=== PATIENT | male | born 1950 | race Caucasian/White ===

== ENCOUNTER → 2021-08-11 13:35 | Outpatient (BNVA) | payer MEDICARE, SELFPAY | PROVIDERS: Visit Provider Registered Nurse Neonatal Intensive Care | DX: R21 Rash and other nonspecific skin eruption (principal) | CPT/HCPCS: 80053; 85025; 86140; 86160; 86162; 86235; 86255; 86376 ==

== ENCOUNTER 2021-08-18 11:22 | Outpatient (CLI) | payer MEDICARE, SELFPAY ==
--- NOTE | 2021-08-18 11:32 | XR_ITS ---
WS: [id number] CHEST 2 VIEWS HISTORY: smoker with weight loss COMPARISON: None available. Lungs: Mild hyperexpansion with flattened diaphragms. No soft tissue mass. Benign granuloma in the ce ntral LEFT lung. Cardiac size: Normal. Mediastinum/Aorta: Normal mediastinum. Bones: There are mild thoracic degenerative disc disease. XR/XR chest 2V* [id number] IMPRESSION: Mild chronic emphysema. No pulmonary mass or nodule.
== END 2021-08-18 11:23 | disposition home or self-care (01) ==
PROVIDERS: Visit Provider Family Medicine Adult Medicine
DX: F17.200 Nicotine dependence, unspecified, uncomplicated (principal); R63.4 Abnormal weight loss; J43.9 Emphysema, unspecified
CPT/HCPCS: 71046

== ENCOUNTER → 2021-10-06 09:48 | Outpatient (BNVA) | payer MEDICARE, SELFPAY | PROVIDERS: Visit Provider Surgery | DX: Z20.822 Contact with and (suspected) exposure to COVID-19 (principal) | CPT/HCPCS: 87635 ==

== ENCOUNTER 2021-10-12 08:12 | Day surgery (SDC) | payer MEDICARE, SELFPAY ==
[2021-10-10 13:47] VITALS: BMI 23.3
--- NOTE | 2021-10-12 08:30 | ANES.PREANE2 ---
Pre-Anesthetic Assessment Pre-Anesthetic Assessment: Height/Weight: Height 1.83 m Weight 78.018 kg Proposed Procedure: Operation Date: 10/12/21 09:45 Proposed Procedures p Colonoscopy 57165 Z86.010(Not Applicable) - Lane Pina MD Was Beta Gertrude taken within 24 hours: N/A Was Clonidine taken within 24 hours: N/A Social: Social History: Tobacco and No alcohol Exam: Pre-Anes Outpt Exam: alert, oriented x 3 and regular rate & rhythm Airway: Submandibular: WNL Cervical ROM: WNL MP: 2 Dentition: False Pulmonary: Pulmonary: COPD Musc/skel: Musc/skel: Lower Back Pain Anesthetic Plan: ASA status: 3 Anesthesia: MAC Risk of > 500 ml blood loss (7ml/kg in children): No PFSH Anesthesia PFSH: Medical History (Updated 09/15/21 @ 09:20 by Hiram Arana MD) Autoimmune skin disease Cellulitis of thumb, left Hx of colonic polyps Last Colonoscopy 2004 with multiple polyps, smoker x 60 years Osteoarthritis involving multiple joints on both sides of body Smoker 60 years 1 ppd Smoker unmotivated to quit Weight loss, abnormal Surgical History (Updated 09/15/21 @ 09:20 by Hiram Arana MD) History of back surgery 1974, 1977 Data Anesthesia Cardiac Studies: No Data to Display
[2021-10-12 09:22] VITALS: BP 120/72; PULSE 90; RESP 16; TEMP 36.5; O2SAT 98
[2021-10-12] MEDS: sodium chloride 0.9% 1,000 ML 30 ML IV (09:26)
--- NOTE | 2021-10-12 10:00 | W.PM.OPSFHP ---
Same Day Surgery H&P Indication for Procedure/HPI DATE OF PROCEDURE: October 12, 2021 CHIEF COMPLAINT/INDICATIONFOR SURGICAL PROCEDURE: History of colon polyp PREOP DIAGNOSIS: History of colon polyps PLANNED PROCEDRUE: Operation Date: 10/12/21 09:45 Proposed Procedures p Colonoscopy 26604 Z86.010(Not Applicable) - Lane Pina MD 09/01/2021 This is a pleasant 71 years old gentleman referred to my practice with history of colon polyps and last colonoscopy was done back in 2004. Patient denies bleeding per rectum and reports that he had his grandpa had history of colon cancer as well as his sister of age of 59. Also reports that he does have a brother had his part of the colon resected but is not sure if it is cancer or not. Patient is referred to me to discuss potential colonoscopy for surveillance purposes. 10/12/2021 Patient comes today for surveillance colonoscopy ROS All systems have been reviewed negative except as per the above or per problem list Medications/Allergies* Allergies/Adverse Reactions Allergy/AdvReac Type Severity Reaction Status Date / Time No Known Allergies Allergy Verified 10/12/21 10:01 Current Medications: Generic Name Dose Route Start Last Admin Trade Name Freq PRN Reason Stop Dose Admin Sodium Chloride 1,000 mls @ 30 mls/hr 10/12/21 08:45 10/12/21 09:26 Sodium Chloride 0.9% IV 10/13/21 08:44 30 mls/hr .Q24H GINGER Administration Pertinent History/Comorbid Conditions* Medical History (Updated 09/15/21 @ 09:20 by Hiram Arana MD) Autoimmune skin disease Cellulitis of thumb, left Hx of colonic polyps Last Colonoscopy 2004 with multiple polyps, smoker x 60 years Osteoarthritis involving multiple joints on both sides of body Smoker 60 years 1 ppd Smoker unmotivated to quit Weight loss, abnormal Surgical History (Updated 09/15/21 @ 09:20 by Hiram Arana MD) History of back surgery 1974, 1977 Pertinent Exam Findings alert, oriented x 3 and procedure specific exam findings (Abdominal examination nontender nondistended soft) Recommendations Surgery/Procedure today (Surveillance Colonoscopy) Coding Level of Care Code Acute 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
[2021-10-12 10:45] VITALS: BP 90/56; PULSE 77; RESP 18; TEMP 36.1; O2SAT 99
--- NOTE | 2021-10-12 10:47 | ANE.PACU2 ---
Inpatient post-anesthesia follow up: Airway intact: Yes Vital signs: Temperature 97.0 F Pulse Rate 77 Respiratory Rate 18 Blood Pressure 90/56 Pulse Oximetry 99 Oxygen Delivery Me thod Nasal Cannula Oxygen Flow Rate 4 Fraction of Inspir ed Oxygen Hydration adequate: Yes Nausea and vomiting: No Pain level: 1 Mental status: Baseline
[2021-10-12 11:02] VITALS: BP 115/68; PULSE 77; RESP 17; O2SAT 97
--- NOTE | 2021-10-12 11:06 | FL_ITS ---
WS: [id number] Exam: FL barium enema [id number] Date/Time of Exam: 10/12/2021 11:06 AM Reason For Exam: colonoscopy finding Full column barium enema was performed. Severe diverticulosis and spasm of the sigmoid colon with near obstruction is identified. Barium coul d only be advanced into the descending colon. The remaining colon could not be opacified for evaluati on. No obvious mass was identified however distention of the left colon was suboptimal. Recommendations: A repeat study with IV glucagon might be considered when the patient's condition daphney l allow. FL/FL barium enema [id number] IMPRESSION: 1. Nondiagnostic barium enema due to severe diverticulosis and spasm of the sig moid colon with near obstruction. Some barium flowed into the left colon but de tail is suboptimal for detection of a mass or constricting lesion.
== END 2021-10-12 11:06 | disposition home or self-care (01) ==
PROVIDERS: PCP Family Medicine Adult Medicine; Visit Provider Surgery
PROC: 0DJD8ZZ Inspection of Lower Intestinal Tract, Via Natural or Artificial Opening Endoscopic (ICD-10-PCS; CPT 45378; principal; 2021-10-12 09:45)
DX: Z12.11 Encounter for screening for malignant neoplasm of colon (principal); K57.30 Diverticulosis of large intestine without perforation or abscess without bleeding; F17.200 Nicotine dependence, unspecified, uncomplicated; Z86.010 Personal history of colon polyps
CPT/HCPCS: 45330; 74270; 96360; 96361; J2704; J7030

== ENCOUNTER 2021-11-28 11:37 | Outpatient (CLI) | payer MEDICARE, SELFPAY ==
--- NOTE | 2021-11-28 11:45 | CT_ITS ---
WS: [id number] CT ABDOMEN AND PELVIS WITH CONTRAST HISTORY: Unable to gain weight. History of diverticulitis. TECHNIQUE: Imaging performed of the abdomen and pelvis with IV contrast. Single phase imaging of the abdomen. Coronal and sagittal reformats are submitted. All CT scans at [facility] use at [address] one of these dose optimization techniques: automated exposure control; mA and/or kV adjustment per patient size (includes targeted exams where dose is matched to clinical indication); or iterative re construction. IV CONTRAST: Omnipaque 300; 95 mL IV. Oral contrast: No DLP: 1345.44 mGy.cm COMPARISON: None available. Lower thorax: Moderate chronic emphysema. Lungs are hyperinflated. Heart is top normal size on the sc out image. No hiatal hernia. Liver/biliary system: Normal size liver. Hypoechoic nodule is too small to characterize towards the s uperior LEFT lobe of the liver. There are additional smaller scattered areas of decreased attenuation . No solid mass. Normal portal vein. Gallbladder: Normal. No gallstones or wall thickening. No pericholecystic fluid. Pancreas: Normal size pancreas and pancreatic duct. No adjacent inflammation. Spleen: Normal size spleen with granulomata. Adrenal glands: Normal. Right kidney: Normal size kidney. Cortical cysts are noted. The largest in the upper pole measures 2. 2 cm in diameter. No obstruction. Left kidney: Normal size kidney. There are several small cortical cysts. The largest in the upper ana m e measures 1.0 cm. No obstruction or solid mass. Aorta: Moderate atherosclerosis throughout the abdominal aorta. There is aneurysmal dilatation beginn ing below the level of the renal arteries extending over a length of 7.3 cm. Aneurysm begins several centimeters below the renal arteries and extends to the bifurcation. Maximum diameter of the aneurysm is 4.8 cm x 4.7 cm. Asymmetric luminal thrombus greatest to the LEFT measures 1.0 cm at its maximum. The lumen is patent to the bifurcation. Very mild ectasia and atherosclerotic changes within the edwige ac arteries. Opacification and contrast enhancement within the celiac axis and SMA. Opacification is limited by the contrast injection. Lymphadenopathy: None. Free fluid: None. GI tract: Stomach is nondistended with contrast. No obstructive pattern. There is moderate fecal rete ntion throughout the colon. The appendix is normal. Numerous diverticula beginning in the sigmoid col on. There is wall thickening and heterogeneity within the mucosa. Very dense inspissated contrast ret ained within several of the sigmoid diverticula. No definite free air is identified. No acute diverti culitis appreciated. No abscess. Abdominal wall: Fat-containing umbilical hernia. Pelvis: No free fluid or adenopathy. Normally distended urinary bladder. Prostate gland is heterogene ous. Bones: Degenerative LEFT curvature lumbar spine. Mild narrowing of the hip joints. CT/CT abdomen pelvis w con* [id number] IMPRESSION: 1. Extensive extensive sigmoid diverticulosis. No definite evidence for acute diverticulitis at this time. 2. Moderate size infrarenal abdominal aortic aneurysm with a maximum diameter 4.8 cm. 3. Emphysema. 4. Degenerative rotoscoliosis lumbar spine.
[2021-11-28] MEDS: iohexol 300 mg/mL 50 mL Btl IV (12:35)
[2021-11-28 12:43] LABS: Blood Urea Nitrogen 9 mg/dL (8-23)
[2021-11-28] MEDS: iohexol 300 mg/mL 100 mL Btl IV (13:48)
== END 2021-11-28 11:38 | disposition home or self-care (01) ==
PROVIDERS: PCP Family Medicine Adult Medicine; Visit Provider Surgery
DX: K56.699 Other intestinal obstruction unspecified as to partial versus complete obstruction (principal); K57.30 Diverticulosis of large intestine without perforation or abscess without bleeding; M41.86 Other forms of scoliosis, lumbar region; J43.9 Emphysema, unspecified; I71.4 Abdominal aortic aneurysm, without rupture
CPT/HCPCS: 74177; 82565; 84520

== ENCOUNTER 2022-01-17 11:13 | Outpatient (CLI) | payer MEDICARE, SELFPAY ==
--- NOTE | 2022-01-17 12:00 | CT_ITS ---
WS: [id number] CTA ABDOMEN TECHNIQUE: Noncontrast plus contrast enhanced CTA of the abdominal aorta with coronal and sagittal re formatted images and additional MIP Images. CLINICAL INFORMATION: I71.4 - Abdominal aortic aneurysm, without rupture COMPARISON: November 28, 2021 DLP: 854.[address] scans at [facility] use at least one of these dose optimization techniques: automated e xposure control; mA and/or kV adjustment per patient size (includes targeted exams where dose is matc hed to clinical indication); or iterative reconstruction. FINDINGS: Again seen is the aneurysmal infrarenal abdominal aorta with a small amount of peripheral mural throm bus. This measures approximately 4.3 x 4.6 x 7.1 cm AP by transverse by craniocaudal unchanged from p revious. Slightly ectatic common iliac artery measuring 13 mm on the RIGHT. Proximal common iliac art eries are patent. Celiac and SMA are patent. Proximal renal ostia are patent. Renal arteries are baires nt. Normal renal parenchymal enhancement. No hydronephrosis. Adrenal glands are normal. Simple bilate ral renal cysts. Normal GE junction. Lung bases are well aerated. Normal liver. Normal gallbladder. Normal pancreas. S pleen appears normal. No periaortic or retroperitoneal lymphadenopathy. Enhancing enlarged prostate measuring 4.4 CM. Sigmoid diverticulosis. No evidence of high-grade small or large bowel obstruction. Normal appendix in the RIGHT lower quadrant. Fat-containing umbilical he rnia. Moderate to advanced spondylitic changes lumbar spine with disc space narrowing L2-L5. CT/CT angio abdomen pelvis [id number] IMPRESSION: 1. No significant change in the infrarenal abdominal aortic aneurysm measuring 4.3 x 4.6 x 7.1 cm with peripheral mural thrombus. 2. Celiac and SMA are patent. Proximal renal arteries are patent. 3. Slightly ectatic RIGHT common iliac artery measuring 2.1 cm. 4. Additional nonvascular findings described above.
[2022-01-17] MEDS: iodixanol 320 mg/mL 100mL Btl IV (12:34)
== END 2022-01-17 11:14 | disposition home or self-care (01) ==
LOC: RAD 11:17
PROVIDERS: PCP Family Medicine Adult Medicine; Visit Provider Thoracic Surgery (Cardiothoracic Vascular Surgery)
DX: I71.4 Abdominal aortic aneurysm, without rupture (principal)
CPT/HCPCS: 74174

== ENCOUNTER → 2022-03-09 09:55 | Outpatient (BNVA) | payer MEDICARE, SELFPAY | PROVIDERS: PCP Family Medicine Adult Medicine; Visit Provider Thoracic Surgery (Cardiothoracic Vascular Surgery) | DX: Z98.890 Other specified postprocedural states (principal); I71.4 Abdominal aortic aneurysm, without rupture; F17.210 Nicotine dependence, cigarettes, uncomplicated; Z79.82 Long term (current) use of aspirin | CPT/HCPCS: 99213 ==

== ENCOUNTER 2022-10-02 10:44 | Outpatient (CLI) | payer MEDICARE, SELFPAY ==
--- NOTE | 2022-10-02 11:15 | USCV_ITS ---
Ramila Harper Age: 72 Gender: M : 1950 Exam Date: 10/02/2022 10:50 Ordering Phys: Moe Samuel MD (Andy) ([email or web address]) Technologist: CT [place]am [place] [facility] [place]: AAA HISTORY: Diameter (cm) AP x Transverse x Length Velocity (cm/s) Waveform Prox Aorta: 2.50 x 2.87 x 55.40 Biphasic Mid Aorta: 2.45 x 2.37 x 64.50 Biphasic Distal Aorta: 4.59 x 4.57 x 79.30 Biphasic Right Iliac Prox: 1.53 x 2.05 x 39.70 Biphasic Left Iliac Prox: 1.33 x 1.41 x 81.00 Biphasic Stent Prox Landing x x Aneurysmal Sac Max x x Lt Lat Sac Dim Rt Lat Sac Dim Stent Dist Landing x x Right Iliac Stent x x Left Iliac Stent x x Right Renal Art Left Renal Art FINDINGS: DST AAA WITH THROMBUS, NO REAL CHANGE IN SIZE SINCE LAST CT SCAN CONCLUSIONS Distal AAA measuring 4.5 x 4.5cm. This is stable compared to previous CTA 01/17/22 Associated peripheral mural thrombus Normal common iliac arteries. Jose Manuel Soriano MD (Electronically Signed) Final Date: 02 October 2022 16:44 S
== END 2022-10-02 10:45 | disposition home or self-care (01) ==
LOC: RAD 10:45
PROVIDERS: PCP Family Medicine Adult Medicine; Visit Provider Thoracic Surgery (Cardiothoracic Vascular Surgery)
DX: I71.40 Abdominal aortic aneurysm, without rupture, unspecified (principal); I74.09 Other arterial embolism and thrombosis of abdominal aorta
CPT/HCPCS: 93978

== ENCOUNTER → 2022-10-05 10:45 | Outpatient (BNVA) | payer MEDICARE, SELFPAY | PROVIDERS: PCP Family Medicine Adult Medicine; Visit Provider Thoracic Surgery (Cardiothoracic Vascular Surgery) | DX: I71.40 Abdominal aortic aneurysm, without rupture, unspecified (principal); Z12.2 Encounter for screening for malignant neoplasm of respiratory organs; F17.210 Nicotine dependence, cigarettes, uncomplicated | CPT/HCPCS: 99213 ==

== ENCOUNTER 2022-10-20 12:10 | Outpatient (CLI) | payer MEDICARE, SELFPAY ==
--- NOTE | 2022-10-20 12:45 | CT_ITS ---
WS: [id number] LDCT LUNG CANCER SCREENING HISTORY: Nicotine addiction TECHNIQUE: Axial imaging performed from the apices to 1 cm below the costophrenic angles. Coronal and sagittal reformats are submitted with axial MIP series. All CT scans at [facility] use at least one of these dose optimization techniques: automated exposure control; mA and/or kV adjustment per patient size (includes targeted exams where dose is matched to clinical indication); or iterativ e reconstruction. DLP: 89.47 mGy.cm DIvol: Mean CTDIvol: 1.60 (mGy) COMPARISON: None available. Diagnostic quality: Satisfactory Lung Nodules: Part solid nodule measures 23 mm diameter. There is a solid component measuring 8 mm. T his nodule is in the posterior superior segment RIGHT lower lobe. 2 mm RIGHT upper lobe peripheral no dule. 4 mm noncalcified nodule RIGHT upper lobe, image 111 of series 4. No additional mass or nodule identified. Lungs: Hyperexpansion and chronic emphysema. Heart: Normal size heart. Moderate coronary artery calcification. No effusion. Other findings: Mild atherosclerosis aorta. Small hiatal hernia. Cyst upper pole RIGHT kidney was jeanette cribed on a prior CT from 01/17/2022. CT/CT lung screening [id number] IMPRESSION: LUNG-RADS: 4A-Probably Suspicious FOLLOW UP: 3 Month LDCT OTHER FINDINGS (S MODIFIER): None.
== END 2022-10-20 12:11 | disposition home or self-care (01) ==
LOC: RAD 12:12
PROVIDERS: PCP Family Medicine Adult Medicine; Visit Provider Thoracic Surgery (Cardiothoracic Vascular Surgery)
DX: Z12.2 Encounter for screening for malignant neoplasm of respiratory organs (principal); F17.200 Nicotine dependence, unspecified, uncomplicated
CPT/HCPCS: 71271

== ENCOUNTER 2023-03-27 11:02 | Outpatient (CLI) | payer MEDICARE, SELFPAY ==
--- NOTE | 2023-03-27 10:45 | USCV_ITS ---
Ramila Harper Age: 73 Gender: M : 1950 Exam Date: 03/27/2023 11:33 Ordering Phys: Moe Samuel MD (Andy) ([email or web address]) Technologist: RENETTA Exam Location: [facility] – [place] Indication: KNOWN AAA HISTORY: Diameter (cm) AP x Transverse x Length Velocity (cm/s) Waveform Prox Aorta: 2.56 x 2.37 x 85.90 Triphasic Mid Aorta: 2.08 x 2.25 x 69.40 Triphasic Distal Aorta: 4.55 x 4.55 x 7.50 42.10 Triphasic Right Iliac Prox: 0.82 x 0.94 x 103.30 Triphasic Left Iliac Prox: 1.42 x 1.54 x 57.80 Triphasic Stent Prox Landing x x Aneurysmal Sac Max x x Lt Lat Sac Dim Rt Lat Sac Dim Stent Dist Landing x x Right Iliac Stent x x Left Iliac Stent x x Right Renal Art Left Renal Art FINDINGS: Comparison:. 10/02/22 A fusiform abdominal aortic aneurysm is noted with a maximal diameter of 4.6 cm. There are no findings to suggest rupture of the abdominal aortic aneurysm. No progression of size. Mild intraluminal thrombus. There is evidence of atherosclerotic plaque no significan stenosis in the right common iliac artery. There is evidence of atherosclerotic plaque no significan stenosis in the left common iliac artery. CONCLUSIONS Stable AAA, maximum diameter of 4.[address] Joi Jones DO (Electronically Signed) Final Date: 27 Mar 2023 11:54 S
== END 2023-03-27 11:03 | disposition home or self-care (01) ==
LOC: RAD 11:06
PROVIDERS: PCP Family Medicine Adult Medicine; Visit Provider Thoracic Surgery (Cardiothoracic Vascular Surgery)
DX: I71.40 Abdominal aortic aneurysm, without rupture, unspecified (principal)
CPT/HCPCS: 93978

== ENCOUNTER → 2023-04-12 14:05 | Outpatient (BNVA) | payer MEDICARE, SELFPAY | PROVIDERS: PCP Family Medicine Adult Medicine; Visit Provider Thoracic Surgery (Cardiothoracic Vascular Surgery) | DX: I71.40 Abdominal aortic aneurysm, without rupture, unspecified (principal); Z12.2 Encounter for screening for malignant neoplasm of respiratory organs; F17.200 Nicotine dependence, unspecified, uncomplicated | CPT/HCPCS: 99213 ==

== ENCOUNTER 2023-09-13 07:30 | Outpatient (CLI) | payer MEDICARE, SELFPAY ==
--- NOTE | 2023-09-13 07:45 | USCV_ITS ---
Ramila Harper Age: 73 Gender: M : 1950 Exam Date: 09/13/2023 07:42 Ordering Phys: Moe Samuel MD (Andy) ([email or web address]) Technologist: Lyndsay Shin Exam Location: [facility] – [place] Indication: KNOWN AAA RECHECK HISTORY: Known AAA Diameter (cm) AP x Transverse x Length Velocity (cm/s) Waveform Prox Aorta: 1.53 x 2.03 x 203.40 Mid Aorta: 1.78 x 2.44 x 76.20 Distal Aorta: 4.40 x 4.73 x 8.83 18.20 Right Iliac Prox: 1.68 x 1.81 x 53.70 Left Iliac Prox: 1.49 x 1.97 x 52.50 Stent Prox Landing x x Aneurysmal Sac Max x x Lt Lat Sac Dim Rt Lat Sac Dim Stent Dist Landing x x Right Iliac Stent x x Left Iliac Stent x x Right Renal Art Left Renal Art FINDINGS: comparison 04/17 CONCLUSIONS Distal fusiform AAA measuring 4.4 x 4.7 x 8.8cm appears stable Moderate atheromatous plaque Normal iliac arteries Jose Manuel Soriano MD (Electronically Signed) Final Date: 13 September 2023 10:09 S
== END 2023-09-13 07:31 | disposition home or self-care (01) ==
PROVIDERS: PCP Family Medicine Adult Medicine; Visit Provider Thoracic Surgery (Cardiothoracic Vascular Surgery)
DX: I71.40 Abdominal aortic aneurysm, without rupture, unspecified (principal); I70.0 Atherosclerosis of aorta
CPT/HCPCS: 93978

== ENCOUNTER → 2024-08-04 10:33 | Outpatient (BNVA) | payer MEDICARE, SELFPAY | PROVIDERS: PCP Family Medicine Adult Medicine; Visit Provider Nurse Practitioner | DX: J84.10 Pulmonary fibrosis, unspecified (principal); M47.894 Other spondylosis, thoracic region; M19.019 Primary osteoarthritis, unspecified shoulder | CPT/HCPCS: 71046 ==

== ENCOUNTER → 2024-09-29 09:46 | Outpatient (BNVA) | payer MEDICARE, SELFPAY | PROVIDERS: PCP Family Medicine; Visit Provider Family Medicine | DX: I71.40 Abdominal aortic aneurysm, without rupture, unspecified (principal); R63.4 Abnormal weight loss; E78.5 Hyperlipidemia, unspecified; N40.0 Benign prostatic hyperplasia without lower urinary tract symptoms | CPT/HCPCS: 80053; 80061; 84153; 85025 ==

== ENCOUNTER 2024-10-09 06:38 | Outpatient (CLI) | payer MEDICARE, SELFPAY ==
--- NOTE | 2024-10-09 07:00 | USCV_ITS ---
Ramila Harper Age: 74 Gender: M : 1950 Exam Date: 10/09/2024 06:46 Ordering Phys: Frank Gutierrez MD Technologist: OPHELIA Exam Location: [facility] – [place] Indication: AAA HISTORY: Diameter (cm) AP x Transverse x Length Velocity (cm/s) Waveform Prox Aorta: 2.20 x 2.00 x 55.70 Triphasic Mid Aorta: 1.50 x 1.40 x 67.40 Triphasic Distal Aorta: 4.40 x 4.40 x 8.50 22.20 Biphasic Right Iliac Prox: 1.54 x 1.44 x 40.00 Biphasic Left Iliac Prox: 1.39 x 1.61 x 101.50 Biphasic Stent Prox Landing x x Aneurysmal Sac Max x x Lt Lat Sac Dim Rt Lat Sac Dim Stent Dist Landing x x Right Iliac Stent x x Left Iliac Stent x x Right Renal Art Left Renal Art FINDINGS: Comparison:. 09/13/23 A complete assessment of the abdominal aorta was not possible. A fusiform abdominal aortic aneurysm is noted with a maximal diameter of 4.4 cm. There are no findings to suggest rupture of the abdominal aortic aneurysm. There is evidence of atherosclerotic plaque no significan stenosis in the right common iliac artery. There is evidence of atherosclerotic plaque no significan stenosis in the left common iliac artery. CONCLUSIONS Large fusiform AAA, maximum diameter of 4.4 cm. No change seen from prior study. Dr. Joi Jones DO (Electronically Signed) Final Date: 09 October 2024 09:55 S
== END 2024-10-09 06:39 | disposition home or self-care (01) ==
LOC: RAD 06:39
PROVIDERS: PCP Family Medicine; Visit Provider Family Medicine
DX: I71.40 Abdominal aortic aneurysm, without rupture, unspecified (principal)
CPT/HCPCS: 93978

== ENCOUNTER 2024-10-13 09:41 | Outpatient (CLI) | payer MEDICARE, SELFPAY ==
--- NOTE | 2024-10-13 10:00 | CT_ITS ---
WS: [id number] LDCT LUNG CANCER SCREENING TECHNIQUE: Noncontrast CT of the chest with coronal and sagittal reformatted images. CLINICAL INFORMATION: screening COMPARISON: 2021 DLP: 58.59 mGy.cm DIvol: Mean CTDIvol: 0.90 (mGy) All CT scans at [facility] use at least one of these dose optimization techniques: automat ed exposure control; mA and/or kV adjustment per patient size (includes targeted exams where dose is matched to clinical indication); or iterative reconstruction. FINDINGS: Previously described 3.7 mm pulmonary nodule RIGHT upper lobe is unchanged in appearance since 2021. Semisolid nodule superior segment RIGHT lower lobe subpleural in location has progressed compared to previous. Solid component has increased compared to 202 measuring approximately 1.9 cm. Recommend fu rther evaluation with PET/CT. Neoplasm not excluded. Moderate chronic emphysematous changes. Calcified granuloma LEFT upper lobe. Calcified hilar nodes. S light fibrosis in the lung apices. Small subpleural nodule LEFT upper lobe measuring 3 mm. Aortic calcification. Coronary calcification. No mediastinal or hilar lymphadenopathy. No axillary ly mphadenopathy. Adrenal glands are normal. Small esophageal hiatal hernia. Moderate thoracic kyphosis. Hypertrophic c hanges thoracic spine. CT/CT lung screening [id number] IMPRESSION: Subpleural semisolid nodule in the superior segment RIGHT lower lob e with surrounding parenchymal fibrosis has increased in size compared to previ ous and measures approximately 1.9 cm. Recommend further evaluation with PET/CT . This is contiguous with the pleura. Neoplasm not excluded. LUNG-RADS: 4A-Probably Suspicious FOLLOW UP: PET/CT recommended
== END 2024-10-13 09:42 | disposition home or self-care (01) ==
LOC: RAD 09:41
PROVIDERS: PCP Family Medicine; Visit Provider Family Medicine
DX: Z12.2 Encounter for screening for malignant neoplasm of respiratory organs (principal); F17.219 Nicotine dependence, cigarettes, with unspecified nicotine-induced disorders; R91.8 Other nonspecific abnormal finding of lung field; J43.9 Emphysema, unspecified; J84.10 Pulmonary fibrosis, unspecified; I70.0 Atherosclerosis of aorta; I25.84 Coronary atherosclerosis due to calcified coronary lesion; M40.204 Unspecified kyphosis, thoracic region
CPT/HCPCS: 71271; 80053; 80061; 84153; 85025

== ENCOUNTER → 2024-10-29 10:30 | Outpatient (BNVA) | payer MEDICARE, SELFPAY | PROVIDERS: PCP Family Medicine; Visit Provider Nurse Practitioner | DX: J44.9 Chronic obstructive pulmonary disease, unspecified (principal); R06.89 Other abnormalities of breathing | CPT/HCPCS: 71046 ==

== ENCOUNTER 2024-10-31 12:00 | Outpatient (CLI) | payer MEDICARE, SELFPAY ==
--- NOTE | 2024-10-31 12:00 | PETR_ITS ---
PROCEDURE INFORMATION: Exam: PET/CT Skull Base to Mid-thigh Exam date and time: 10/31/2024 1:25 PM Age: 74 years old Clinical indication: Abnormal findings; Subpleural semisolid nodule in the superior segment right lower lobe with surrounding. Parenchymal fibrosis has increased in size compared to previous and measures approximately 1.9 cm. ; Additional info: Lungrads 4 LABS AND CLINICAL REPORTS: Glucose: 93 mg/dl Treatment strategy for malignancy (PET staging): Initial Staging (PI) TECHNIQUE: Imaging protocol: Following at least four-hour fasting and following the injection of radiopharmaceutical, low dose CT images were obtained. Then, PET images were obtained. Attenuation corrected images were constructed using the CT scan. Fused images of PET and CT were reviewed. The standardized uptake values (SUV) reported below are maximum values within a region of interest, expressed in gm/ml. Exam includes orbital meatal line to mid-thigh. SUV normalization method: BodyWeight Radiopharmaceutical: 12.58 mCi F-18 FDG (Fluorodeoxyglucose), IV. Time of imaging post radiopharmaceutical administration: 51 minutes Injection site: left ac COMPARISON: 1. CT lung screening [id number] 10/13/2024 10:[address] lung screening [id number] 10/20/2022 12:[address] angio abdomen pelvis [id number] 01/17/2022 12:28 PM FINDINGS: Brain: Visualized brain has normal physiologic uptake. Pharynx: No abnormal uptake. Larynx: No abnormal uptake. Lungs, pleura and trachea: Moderate upper lung predominant emphysematous change. Posterior subpleural right lower lobe superior segment irregular opacity spans approximately 3.0 x 0.9 cm on axial image 494 and shows SUV max 4.5 at more nodular inferior component measuring 1.4 x 0.9 cm on axial image 490. This is similar in size and morphology from last month, mildly increased compared to September 2022. FDG avid 5 mm peribronchovascular left upper lobe nodule on axial image 495 shows SUV max 6.4. Non FDG avid 5 mm right upper lobe nodule on axial image 512 is stable from 2021 in keeping with benignity. Lingular calcified granuloma. Heart: Normal physiologic uptake. Coronary arteries: Moderate coronary artery calcification. Mediastinal space: No abnormal uptake. Diaphragm: Small hiatal hernia. Liver: No abnormal uptake. Gallbladder and biliary ducts: No abnormal uptake. Pancreas: No abnormal uptake. Spleen: No abnormal uptake. Calcified granulomata. Adrenal glands: No abnormal uptake. Kidneys and ureters: Normal physiologic uptake. Couple fluid density photopenic right renal cysts. Stomach and bowel: No abnormal uptake. Colonic diverticulosis without findings of diverticulitis. Vasculature: No abnormal uptake. Moderate to heavy systemic atherosclerosis with fusiform infrarenal abdominal aortic aneurysm measuring 5 cm diameter, previously 4.7 cm. Lymph nodes: No abnormal uptake. No lymphadenopathy in the head, neck, chest, abdomen, pelvis, and extremities. Calcified left hilar node in keeping with sequela of old granulomatous disease. Skeleton: Degenerative change along the spine. Soft tissues: Linear FDG uptake along bilateral neck musculature without underlying CT abnormality is likely physiologic muscle activation or strain. METRICS: Mediastinal blood pool: SUV mean 1.8 Liver uptake: SUV mean 2.0 PET/PET skull to thigh INIT [id number] IMPRESSION: 1. FDG avid 5 mm left upper lobe nodule suspicious for malignancy. 2. Posterior subpleural right lower lobe superior segment irregular opacity also shows FDG uptake, which could be neoplastic or inflammatory. 3. Abdominal aortic aneurysm measures 5 cm, mildly increased from 4.7 cm in 202.
== END 2024-10-31 12:02 | disposition home or self-care (01) ==
PROVIDERS: PCP Family Medicine; Visit Provider Family Medicine
DX: R91.8 Other nonspecific abnormal finding of lung field (principal); I71.40 Abdominal aortic aneurysm, without rupture, unspecified; I25.84 Coronary atherosclerosis due to calcified coronary lesion; J84.10 Pulmonary fibrosis, unspecified; I70.0 Atherosclerosis of aorta
CPT/HCPCS: 78815; A9552

== ENCOUNTER 2025-02-18 12:00 | Outpatient (CLI) | payer MEDICARE, SELFPAY ==
--- NOTE | 2025-02-18 12:15 | USCV_ITS ---
George Harper Age: 75 Gender: M : 1950 Exam Date: 02/18/2025 12:18 Ordering Phys: Frank Gutierrez MD Technologist: USR Exam Location: [facility] – [place] Indication: infrarenal AAA HISTORY: Diameter (cm) AP x Transverse x Length Velocity (cm/s) Waveform Prox Aorta: 2.30 x 2.10 x 57.40 Triphasic Mid Aorta: 1.49 x 1.86 x 50.80 Triphasic Distal Aorta: 4.06 x 4.40 x 7.70 32.80 Biphasic Right Iliac Prox: 1.63 x 1.61 x 190.50 Triphasic Left Iliac Prox: 1.22 x 1.25 x 132.20 Triphasic Stent Prox Landing x x Aneurysmal Sac Max x x Lt Lat Sac Dim Rt Lat Sac Dim Stent Dist Landing x x Right Iliac Stent x x Left Iliac Stent x x Right Renal Art Left Renal Art FINDINGS: CONCLUSIONS Fusiform AAA measuring 4.1 x 4.4 x 7.7cm AP x trans x CC distal aorta appears stable since 2023 Moderate atheromatous plaque Normal iliac arteries Jose Manuel Soriano MD (Electronically Signed) Final Date: 18 February 2025 12:55 S
== END 2025-02-18 12:01 | disposition home or self-care (01) ==
LOC: RAD 12:03
PROVIDERS: PCP Family Medicine; Visit Provider Family Medicine
DX: I77.811 Abdominal aortic ectasia (principal); I70.0 Atherosclerosis of aorta
CPT/HCPCS: 93978